=== PATIENT | male | born 1980 | race American Indian/Alaskan Native ===

== ENCOUNTER 2018-06-02 08:31 | Emergency (ER) | payer MEDICARE ==
[2018-06-02 08:37] VITALS: BP 109/70
--- NOTE | 2018-06-02 10:33 | Emergency Department Report ---
Chief Complaint: Medical Clearance Stated Complaint: MEDICATION REFILL Time Seen by Provider: 06/02/18 09:39 - HPI History of Present Illness: 38-year-old male with a history of schizophrenia presents to Ed want in his medication refilled before he is able to follow up with psychiatrist next month. Patient denies any schizophrenic episode. Patient states he's into a wall thickness medication but he run out of his medication 4 days ago and is worried that he might have an episode. She denies any SI, HI or any hallucinations - ROS Review of Systems: As noted in HPI - Exam Vital Signs: Vital Signs 06/02/18 08:36 Temperature 98.6 F Pulse Rate 86 Respiratory 16 Rate Blood Pressure 109/70 O2 Sat by Pulse 100 Oximetry Physical Exam: GENERAL: Alert and oriented x3, no apparent distress, Normal Gait, atraumatic. HEAD: Head is normocephalic and a-traumatic. PSYCHIATRIC: Mood is congruent with affect, denies suicidal or homicidal ideations. SKIN: Warm and dry, No lesions, No ulceration or induration present. MSE screening note: Focused history and physical exam performed. Due to findings the following was ordered: ED Medical Decision Making - Medical Decision Making 38-year-old male with recent history of schizophrenia presents to ED for medical refill. patient has no other complaints. Patient states he simply here for medication refill. Patient's states that he is able to follow-up with the psychiatric next month. Patient states that he is OUT of his medication which she was priorly prescribed about 2 months ago. He is in no acute distress. ED Disposition for MSE Clinical Impression: Medication refill Disposition: DC-01 TO HOME OR SELFCARE Is pt being admited?: No Does the pt Need Aspirin: No Condition: Stable Instructions: Schizophrenia (ED) Additional Instructions: Follow-up with the psychiatric ears as referred. Take your medication medication as prescribed. Here having any new or worsened symptoms as returned to ED as soon as possible. Prescriptions: Benztropine [Cogentin] 1 mg PO BID #60 tab fluPHENAZine HCl [fluPHENAZine] 10 mg PO QDAY #30 tablet Referrals: RUCHI VÁZQUEZ MD [Primary Care Provider] - 3-5 Days [facility] [Outside] - 3-5 Days Forms: Work/School Release Form(ED) Time of Disposition: 10:37
--- NOTE | 2018-06-02 10:39 | Emergency Department Report ---
Chief Complaint: Medical Clearance Stated Complaint: MEDICATION REFILL Time Seen by Provider: 06/02/18 09:39 - HPI History of Present Illness: Mr. Artis is a very pleasant gentleman with hx of schizophrenia for 10-12 years. He recently moved from [place]. Has had difficulty obtaining a psychiatrist. He has a new patient intake scheduled on June 28. He requests refill of his medications fluphenazine and Cogentin. He's been off these medications for the past 2 months since he has relocated. I and my colleague provided 30 day prescription of fluphenazine and Cogentin. - Exam Vital Signs: Vital Signs 06/02/18 08:36 Temperature 98.6 F Pulse Rate 86 Respiratory 16 Rate Blood Pressure 109/70 O2 Sat by Pulse 100 Oximetry MSE screening note: Focused history and physical exam performed. Due to findings the following was ordered: ED Disposition for MSE Clinical Impression: Medication refill Disposition: - TO HOME OR SELFCARE Condition: Stable Instructions: Schizophrenia (ED) Additional Instructions: Follow-up with the psychiatric ears as referred. Take your medication medication as prescribed. Here having any new or worsened symptoms as returned to ED as soon as possible. Prescriptions: Benztropine [Cogentin] 1 mg PO BID #60 tab fluPHENAZine HCl [fluPHENAZine] 10 mg PO QDAY #30 tablet Referrals: [facility] [Outside] - 3-5 Days [facility] RUCHI MANCERA MD [Primary Care Provider] - 3-5 Days Forms: Work/School Release Form(ED)
== END 2018-06-02 10:51 | disposition home or self-care (01) ==
LOC: ED 08:31
DX: F20.9 Schizophrenia, unspecified (principal); Z76.0 Encounter for issue of repeat prescription
CPT/HCPCS: 99282

== ENCOUNTER 2018-11-15 20:55 | Emergency (ER) | payer MEDICARE ==
--- NOTE | 2018-11-15 21:06 | Emergency Department Report ---
Blank Doc - Documentation Documentation: This is a 38-year-old male that presents with anger with his sister. He denies any SI/HI. This initial assessment/diagnostic orders/clinical plan/treatment(s) is/are subject to change based on patient's health status, clinical progression and re- assessment by fellow clinical providers in the ED. Further treatment and workup at subsequent clinical providers discretion. Patient/guardians urged not to elope from the ED as their condition may be serious if not clinically assessed and managed. Initial orders include: 1- Patient sent to MAIN ED for further evaluation and treatment 2- civil rights representative was notified to have patient be brought back [facility]. 3- RN was notified to keep patient as close range and observation until room available
[2018-11-15 21:36] LABS: Basophils % (Auto) 0.5 % (0.0-1.8); Eosinophils % (Auto) 0.6 % (0.0-4.3); Hematocrit 39.6 % (35.5-45.6); Hemoglobin 13.4 gm/dl (11.8-15.2); Lymphocytes # (Auto) 1.9 K/mm3 (1.2-5.4); Lymphocytes % (Auto) 25.8 % (13.4-35.0); Mean Corpuscular HGB Conc 34 % (32-34); Mean Corpuscular Volume 87 fl (84-94); Monocytes # (Auto) 0.8 K/mm3 (0.0-0.8); Monocytes % (Auto) 10.8 % (0.0-7.3); Platelet Count 205 K/mm3 (140-440); Red Blood Count 4.57 M/mm3 (3.65-5.03); Red Cell Distribution Width 13.2 % (13.2-15.2)
[2018-11-15 21:51] LABS: Alanine Aminotransferase 17 units/L (7-56); Albumin 4.4 g/dL (3.9-5); BUN/Creatinine Ratio 7; Blood Urea Nitrogen 6 mg/dL (9-20); Hemolysis Index 6
[2018-11-15 21:58] VITALS: BP 139/91
== END 2018-11-15 23:40 | disposition left against medical advice (07) ==
LOC: ED 20:55
DX: R41.82 Altered mental status, unspecified (principal); Z53.21 Procedure and treatment not carried out due to patient leaving prior to being seen by health care provider
CPT/HCPCS: 36415; 80053; 80320; 85025; G0480